=== PATIENT | male | born 2000 | race Caucasian/White ===

== ENCOUNTER 2021-11-06 17:26 | Day surgery (SDC) | payer OTHER ==
[~2021-11-06] VITALS: Ht 172.7 cm; Wt 95.5 kg
[2021-11-06 20:55] VITALS: BP 124/64; PULSE 85; TEMP 98.3
[2021-11-06 22:09] VITALS: BP 127/68; PULSE 64; TEMP 98.2
[2021-11-07 00:52] VITALS: BP 126/74; PULSE 65
[2021-11-07 04:14] VITALS: BP 129/54; PULSE 79; TEMP 98.4
[2021-11-07 07:51] VITALS: BP 124/61; PULSE 82; TEMP 98.2
[2021-11-07] MEDS ORDERED: OXYCODONE H5 MG/5 ML PO (07:51)
--- NOTE | 2021-11-07 08:04 | NUR ---
PATIENT ALERT AND ORIENTED X3. DISCHARGING TODAY AFTER BREAKFAST. NO NEW CONCERNS.
== END 2021-11-07 10:11 | disposition home or self-care (01) ==
LOC: COL.ER 17:26 → SDCO 18:32 → SURG 18:32 → SDCO 11-07 10:11
DX: L76.22 Postprocedural hemorrhage of skin and subcutaneous tissue following other procedure (principal)
CPT/HCPCS: OP; J1100; J2405; J2704; J3010; J7120